=== PATIENT | female | born 1980 | race African-American/Black ===

== ENCOUNTER 2018-03-09 23:48 | Emergency (ER) | payer OTHER ==
[2018-03-09 23:56] VITALS: BP 126/78; BMI 28.7
--- NOTE | 2018-03-10 01:07 | CT ---
CT face without contrast Indication: Facial injury. Comparison: None Technique: CT images of the face were obtained without contrast. Automatic exposure control utilized. Findings: The visualized portions of the brain are grossly normal. There is mild mucosal thickening o f the left maxillary sinus. Minimal fluid is present within the right sphenoid sinus, also suggestive for sinusitis. No acute facial fracture is identified. The mandible is intact. Impression: No evidence for acute facial fracture. Mild left maxillary and right sphenoid sinusitis. Reported By:
--- NOTE | 2018-03-10 01:11 | CT ---
CT thoracic spine without contrast Indication: Back pain after injury Technique: CT images of the thoracic spine were obtained without contrast. Automatic exposure control utilized. Findings: The thoracic spine alignment is normal. No significant vertebral body height loss or acute cortical disruption identified. The facet joints are intact. Incidentally noted are chronic appearing calcific densities adjacent to the inferior margins of the T7 and T8 spinous processes (for example sagittal image 23), compatible with enthesopathy versus interspinous ligament ossification. Minimal m ultilevel discogenic degenerative change noted. The paravertebral soft tissues are grossly unremarkab le. Impression: No acute thoracic spine fracture or subluxation. Reported By:
--- NOTE | 2018-03-10 01:13 | CT ---
CT lumbar spine without contrast Indication: Back pain after injury Technique: CT images of the lumbar spine were obtained without contrast. Automatic exposure control u tilized. Findings: Transitional lumbosacral vertebra is incidentally noted. Lumbar spine alignment is normal. No significant vertebral body height loss or acute cortical disruption. There is mild multilevel face t arthropathy. Mild bilateral SI joint DJD. Paravertebral soft tissues are grossly unremarkable. Impression: No acute lumbar spine fracture or subluxation. Reported By:
[2018-03-10] MEDS ORDERED: ADACEL TDaP IM ONE ×2 (01:14→01:22)
[2018-03-10] MEDS ORDERED: NORCO 7.5/325 MG TAB PO ONE (01:14)
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
[2018-03-10] MEDS ORDERED: NORCO 7.5/325 MG TAB ONE (01:22)
== END 2018-03-10 01:39 | disposition home or self-care (01) ==
LOC: ER 23:48
DX: M54.5 Low back pain (principal); R51 Headache; J32.0 Chronic maxillary sinusitis; J32.3 Chronic sphenoidal sinusitis; V27.0XXA Motorcycle driver injured in collision with fixed or stationary object in nontraffic accident, initial encounter
CPT/HCPCS: 70486; 72128; 72131; 90471; 99282; 99283